=== PATIENT | female | born 1980 | race Caucasian/White ===

== ENCOUNTER 2018-08-07 09:17 | Inpatient (IN) | payer MEDICAID ==
[~2018-08-07] VITALS: Ht 152.4 cm; Wt 79.6 kg
[2018-08-07 09:29] VITALS: BP 109/65; PULSE 74; RESP 18; Ht 152.4 cm; Wt 79.6 kg
[2018-08-07] MEDS ORDERED: PREN-93 PO (09:29)
[2018-08-07] MEDS ORDERED: OXYTOCIN 30 UNITS/LR 500 ML IV SCH ×3 (13:00→19:00)
[2018-08-07] MEDS ORDERED: LIDOCAINE 1% (MPF) 30 ML INJ INJ PRN (13:00)
[2018-08-07] MEDS ORDERED: CARBOPROST 250 MCG INJ IM PRN ×2 (13:00→23:00)
[2018-08-07] MEDS ORDERED: METHYLERGONOVINE 0.2 MG INJ IM PRN ×2 (13:00→23:00)
[2018-08-07] MEDS ORDERED: BUTORPHANOL 2 MG INJ IV PRN ×2 (13:00)
[2018-08-07] MEDS ORDERED: OXYTOCIN 30 UNITS/LR 500 ML IV PRN ×2 (13:00→23:00)
[2018-08-07] MEDS ORDERED: MISOPROSTOL 200 MCG TAB PR PRN ×2 (13:00→23:00)
[2018-08-07] MEDS ORDERED: IBUPROFEN 600 MG TAB PO PRN (13:00)
[2018-08-07] MEDS: LACTATED RINGER'S 1,000 ML IV SCH ×3 (15:23→18:08)
--- NOTE | 2018-08-07 17:13 | HP ---
Date/Time of Note Date/Time of Note DATE: 08/07/18 TIME: 17:09 OB - History Hx of Present Free Text/Dictation 38-year-old female 4 para 3 at 38 weeks and 5 days gestation admitted complaining of onset of uterine contractions started few hours prior to admission Chief Complaint: Labor contractions and vaginal spotting Last Menstrual Period: Nov 09, 2017 Estimated Due Date: Aug 16, 2018 : 4 Para: 3 Ultrasounds: Normal mid trimester US Obstetrical Complications: Gestational Diabetes Medical Complications: None Past Family/Social History * Past Medical, Surgical, Family and Obstetric Histories reviewed from chart. Blood Type: O+ Rubella: not immune RPR/VDRL: Negative GBS Status: Unknown HBsAG: Negative OB Admission Exam Vital Signs Vital Signs Vital Signs Date Temp Pulse Resp B/P (MAP) Pulse Ox O2 O2 Flow FiO2 Time Delivery Rate 08/07/18 98.0 74 18 109/65 Room Air 09:29 (80) Physical Exam HEENT: WNL Heart: Rhythm Normal Lungs: Clear, Equal Abdomen: WNL Extremities: Normal Reflexes: Normal Cervical Dilatation: 4cm Effacement: 50% Station: -3 Membranes: Intact Heart Rate: 140's Accelerations: Accelerations Present Decelerations: No Decelerations Varibility: Marked Contractions on Admission: 6-10 Minutes Apart Date/Time Contractions Began: 08/07/2018 and 6 AM Frequency of Contractions: Every 6 to 10 minutes Duration: Over 45 seconds Intensity: Mild Last 72 hours Lab Results CBC & BMP 08/07/18 12:23 OB Assessment/Plan Other Assessment: Term gestation labor contractions the cause cervical change Other plan: We will continue to observe JULIA AVILEZ MD Aug 07, 2018 17:13
[2018-08-07] MEDS ORDERED: ACETAMINOPHEN 500 MG TAB PO STA (20:03)
[2018-08-07] MEDS ORDERED: KETOROLAC 30 MG INJ IV STA (20:03)
--- NOTE | 2018-08-07 20:03 | LDN ---
Date/Time of Note Date/Time of Note DATE: 08/07/18 TIME: 20:01 Delivery Summary Normal spontaneous vaginal delivery of a viable infant over intact perineum Weeks of Gestation 38+ weeks Placenta Delivered: Intact & Complete Meconium: none Episiotomy: No Perineal laceration: 0 Anesthesia type: None Estimated blood loss: 200 Sponge & Needle done & correct: Yes All needle counts correct: Yes Any foreign bodies felt in the: No Infant Delivery Information Sex Sex: female Apgars 1 Minute: 9 5 Minute: 9 Suctioning Nose & mouth suctioned at ege: Yes Delee suction performed: No Umbilical Cord Umbilical cord with: 3 Vessels Cord presentations: no nuchal cord Cord Blood was obtained: Yes Mother & Baby Disposition Disposition Mom & Baby to Maternity; Good: Yes (Mother and baby were recovered in good condition) Mom transferred to: Other (Maternity floor) Baby to NICU: No JULIA AVILEZ MD Aug 07, 2018 20:03
[2018-08-07 22:00] VITALS: BP 104/55; PULSE 57; RESP 20
[2018-08-07] MEDS ORDERED: WITCH HAZEL/GLYCERIN PAD PR PRN (23:00)
[2018-08-07] MEDS ORDERED: ZOLPIDEM 5 MG TAB PO PRN (23:00)
[2018-08-07] MEDS ORDERED: BENZOCAINE 20% 56 ML SPRAY TOP PRN (23:00)
[2018-08-07] MEDS ORDERED: HYDROCODONE/APAP (5/325) TAB PO PRN ×2 (23:00)
[2018-08-07] MEDS ORDERED: DIBUCAINE 1% 30 GM OINT TOP PRN (23:00)
[2018-08-07] MEDS ORDERED: LANOLIN HPA 1 PKT TOP PRN (23:00)
[2018-08-08] MEDS: LACTATED RINGER'S 1,000 ML IV* SCH ×2 (00:36→06:39)
[2018-08-08] MEDS: IBUPROFEN 600 MG TAB PO SCH ×4 (00:38→18:00)
[2018-08-08 04:00] VITALS: BP 90/55; PULSE 71; RESP 16
[2018-08-08] MEDS: ACCU-CHEK XX SCH (06:00)
[2018-08-08 08:00] VITALS: BP 100/57; PULSE 84; RESP 18
[2018-08-08] MEDS: MAGNESIUM HYDROXIDE 30ML CUP PO SCH ×2 (09:00→21:09)
[2018-08-08] MEDS: SENNA/DOCUSATE NA (8.6MG/50MG) TAB PO SCH ×2 (11:37→21:09)
--- NOTE | 2018-08-08 11:55 | DS ---
Date/Time of Note Date/Time of Note Home today or next day DATE: 08/08/18 TIME: 11:54 Obstetrical Discharge Record Final Diagnosis Final Diagnosis: Term delivered Other Final Diagnosis Status post vaginal delivery Vaginal Delivery Obstetrical Delivery: Spontaneous Complications Gestational Diabetes Condition on Discharge Physical Assessment Last Vitals: See nurse's notes Voiding: Yes Bowel Movement: Yes Breast: Soft, non-tender, Filling Fundus: Firm Abdomen and Incision: Abdomen is soft with firm fundus Episiotomy: Perineum is intact and appears clean Calf Tenderness: No Patient Condition: Good JULIA AVILEZ MD Aug 08, 2018 11:55
[2018-08-08] MEDS ORDERED: IBUP-1542 PO (11:58)
--- NOTE | 2018-08-08 11:58 | PD.PPDC ---
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 Provider Information Physician Information 38-year-old female had vaginal delivery Sugars remained stable on diet after delivery Diagnosis Ulvfv6Es Final Diagnosis: Wkjov6n Status post vaginal delivery Condition Kwrrw1Up Patient Condition: Ehdck0c Good Diet Qejyn8Ly Diet: Dptlm3z Special Diet Special Diet: 2000-calorie ADA Activity/Restrictions [id number] Activity: Ngasf6y Normal Activity May Shower Hefqf6Ns Restrictions: Wxwgp6f Nothing in the Vagina [id number] Return to Work or School: Jbnat6b Sep 25, 2018 Follow-up Follow-up with Physician: 2, 4, Week/Weeks (In clinic) Return to clinic for [id number] OB Instructions: Jzbxt5d Breast Tenderness Depression Comment: Pelvic rest for 6 weeks JULIA AVILEZ MD Aug 08, 2018 11:58
[2018-08-08 12:00] VITALS: BP 98/50; PULSE 61; RESP 18
[2018-08-08 17:17] VITALS: BP 105/51; PULSE 72; RESP 18
[2018-08-08 20:00] VITALS: BP 104/68; PULSE 62; RESP 19
[2018-08-09] MEDS: LACTATED RINGER'S 1,000 ML IV* SCH ×2 (01:17→06:44)
[2018-08-09] MEDS: ACCU-CHEK XX SCH ×4 (01:17→11:00)
[2018-08-09 03:30] VITALS: BP 105/59; PULSE 79; RESP 19
[2018-08-09] MEDS: IBUPROFEN 600 MG TAB PO SCH ×3 (05:55→12:00)
[2018-08-09 08:00] VITALS: BP_SYST 100; BP_SYST 111; BP_DIAS 56; BP_DIAS 65; PULSE 76; PULSE 81; RESP 18
[2018-08-09] MEDS ORDERED: DIPHTH/TET/ACEL PERTUSS (ADULT) 0.5 ML VIAL IM* ONE (09:00)
[2018-08-09] MEDS ORDERED: MEASLES,MUMPS,RUBELLA VACCINE INJ SC* ONE (09:00)
[2018-08-09] MEDS ORDERED: VARICELLA VACCINE LIVE/PF 1,350 UNIT/0.5 ML ML SC* ONE (09:00)
[2018-08-09] MEDS: MAGNESIUM HYDROXIDE 30ML CUP PO SCH (09:41)
[2018-08-09] MEDS: SENNA/DOCUSATE NA (8.6MG/50MG) TAB PO SCH (09:41)
--- NOTE | 2018-08-10 13:43 | DELSUM ---
Delivery Summary A-C Datetime Report Generated by CPN: 08/10/2018 13:42 DELIVERY PERSONNEL Sensitometrist: MikeBelle Mead MATERNAL INFORMATION Delivery Anesthesia: None Medications in Delivery: 30Upitocin WITH lr Delivery QBL (ml): 200 Placenta Cultured: No Maternal Complications: None RN Comments: GDM DIET CONTROLED, LAST BABY 12 YRS AGO LABOR SUMMARY EDC: 08/16/2018 00:00 No. Babies in Womb: 1 Attempted: No Labor Anesthesia: IV Sedation LABOR INFORMATION Reason for Induction: Not Applicable Onset of Labor: 08/07/2018 12:00 Complete Dilatation: 08/07/2018 09:41 Group B Beta Strep: Negative Antibiotics # of Doses: 0 Steroids Given: None Reason Steroids Not Administered: Not Applicable MEMBRANES Membranes Rupture Method: Artificial Rupture of Membranes: 08/07/2018 17:48 Length of Rupture (hr): 2.07 Amniotic Fluid Color: Clear Amniotic Fluid Amount: Moderate Amniotic Fluid Odor: Normal STAGES OF LABOR Stage 1 hr: -2 Stage 1 min: -19 Stage 2 hr: 10 Stage 2 min: 11 Stage 3 hr: 0 Stage 3 min: 2 Total Time in Labor hr: 7 Total Time in Labor min: 54 VAGINAL DELIVERY Episiotomy: None Laceration Extension: N/A Laceration Type: None Laceration Repair: Not Applicable Initial Vag Sponge Count: 10 Final Vag Sponge Count: 10 Initial Vag Sharps Count: 2 Final Vag Sharps Count: 2 Sponge Count Correct: Yes; Vaginal Sweep Performed Sharps Count Correct: Yes CSECTION DELIVERY Sterilization Procedure: Ring and Clip BABY A INFORMATION Infant Delivery Date/Time: 08/07/2018 19:52 Method of Delivery: Vaginal Born in Route : No : N/A Forceps: N/A Vacuum Extraction: N/A Shoulder Dystocia : No SHOULDER DYSTOCIA BABY A Infant Delivery Date/Time: 08/07/2018 19:52 PRESENTATION/POSITION BABY A Presentation: Cephalic Cephalic Presentation: Vertex Vertex Position: Left Occipital Anterior Breech Presentation: N/A PLACENTA INFORMATION BABY A Placenta Delivery Time : 08/07/2018 19:54 Placenta Method of Delivery: Spontaneous Placenta Status: Delivered SCORES BABY A Heart Rate 1 min: >100 bpm Resp Effort 1 min: Good Cry Reflex Irritability 1 min: Cough/Sneeze/Pulls Away Muscle Tone 1 min: Active Motion Color 1 min: Body [place], Extremit Blue Resuscitation Effort 1 min: Tactile Stimulation SCORE 1 MIN: 9 Heart Rate 5 min: >100 bpm Resp Effort 5 min: Good Cry Reflex Irritability 5 min: Cough/Sneeze/Pulls Away Muscle Tone 5 min: Active Motion Color 5 min: Body [place], Extremit Blue Resuscitation Effort 5 min: Tactile Stimulation SCORE 5 MIN: 9 INFANT INFORMATION BABY A Gestational Age at Delivery: 38.5 Gestational Status: Early Term- 37- 38.6 Weeks Outcome : Liveborn, with signs of life Condition : Stable Sex: Female IDENTIFICATION/MEDS BABY A ID Band Number: [id number] ID Band Location: Right Leg; Left Arm Sensor Applied: Yes Sensor Number: [id number] Sensor Location : Cord Clamp Vitamin K Given : Not Given Erythromycin Given: Not Given WEIGHT/LENGTH BABY A Birthweight (gm): 3415 Infant Weight (lb): 7 Infant Weight (oz): 8 Length (in): 19.00 Length (cm): 48.26 CORD INFORMATION BABY A No. Cord Vessels: 3 Nuchal Cord : N/A Cord Blood Taken: Yes Infant Suction: Mouth; Nose ASSESSMENT BABY A Infant Complications- Other: GDM
== END 2018-08-09 13:00 | disposition home or self-care (01) | DRG 807 ==
LOC: OBT 09:17 → L-D 09:19 → OBT 12:05 → L-D 12:06 → PP1 22:10
PROVIDERS: ADMIT Obstetrics & Gynecology; ATTEND Obstetrics & Gynecology
PROC: 10E0XZZ Delivery of Products of Conception, External Approach (ICD-10-PCS; principal; 2018-08-07)
DX: O24.419 Gestational diabetes mellitus in pregnancy, unspecified control (principal); Z37.0 Single live birth; Z3A.38 38 weeks gestation of pregnancy
CPT/HCPCS: 76815; 76818; 82947; 82962; 85025; 85610; 85730; 86592; 86850; 86900; 86901; 87340; 90716; G0463; J0595; J1885; J2590; J7120

== ENCOUNTER 2018-08-13 16:46 | Emergency (ER) | payer MEDICAID ==
[~2018-08-13] VITALS: Ht 154.9 cm; Wt 71.5 kg
[~2018-08-13 16:46] MED LIST: IBUP-1542 PO; PREN-93 PO
[2018-08-13 16:51] VITALS: BP 134/63; PULSE 55; RESP 20; Ht 154.9 cm; Wt 71.5 kg
[2018-08-13] MEDS ORDERED: PRED20TA PO (17:16)
--- NOTE | 2018-08-13 17:19 | ERD ---
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 The patient has right-sided facial paralysis that includes the forehead. She notes sensation deficit to the right anterior portion of the tongue. She denies any fevers or chills, no falls or injury, no other motor weakness. ROS All systems reviewed and are negative except as per history of present illness. Medications Home Meds Active Scripts Prednisone* (Prednisone*) 20 Mg Tab, 60 MG PO DAILY for 7 Days, TAB Prov:BRANDYN REMY MD 08/13/18 Ibuprofen* (Ibuprofen*) 600 Mg Tablet, 600 MG PO Q6, #60 TAB 0 Refills Prov:JULIA AVILEZ MD 08/08/18 Reported Medications Vit No.124/Iron/FA ( Vitamin Tablet) 1 Each Tablet, 1 EACH PO DAILY, TAB 08/07/18 Allergies Allergies: Coded Allergies: No Known Drug Allergy (Verified Allergy, Unknown, 04/20/06) PMhx/Soc Medical and Surgical Hx: pt denies Medical Hx, pt denies Surgical Hx Hx Alcohol Use: No Hx Substance Use: No Hx Tobacco Use: No Smoking Status: Never smoker FmHx Family History: No diabetes Physical Exam Vitals Vital Signs Date Temp Pulse Resp B/P (MAP) Pulse Ox O2 O2 Flow FiO2 Time Delivery Rate 08/13/18 98.0 55 20 134/63 100 16:51 (86) Physical Exam General: Well developed, well nourished, no acute distress Head: Normocephalic, atraumatic. Eyes: Pupils equally reactive, EOM intact ENT: Moist mucous membranes Neck: Supple, no lymphadenopathy Respiratory: Lungs clear bilaterally, no distress Cardiovascular: RRR, no murmurs, rubs, or gallops Abdominal: Soft, non-tender, non-distended, no peritoneal signs : Deferred MSK: No edema, no unilateral swelling, 5/5 strength Neurologic: Alert and oriented, moving all extremities, normal speech, no focal weakness, no cerebellar signs, right-sided facial paralysis that includes the forehead, able to close the eyes fully. House-Brackman grade II-III. Steady gait Skin: No rash Psych: Normal mood Procedures/MDM Patient presents with signs and symptoms very consistent with uncomplicated right-sided Kamara's palsy. She has no signs or symptoms concerning for central nervous system process. No signs or symptoms concerning for intracranial mass or hemorrhage. No indication for CT imaging of the brain. Patient has a classic presentation. She has mild to moderate dysfunction therefore prednisone alone would be reasonable treatment Return precautions were discussed and understood. The patient will be initiated on glucocorticoid therapy. Primary care follow-up in neurology follow-up will be reasonable. The patient does not have an identifiable emergent medical condition that warrants inpatient hospitalization at this time. The patient is deemed safe for discharge with outpatient follow-up. We discussed follow up with the patient's primary care doctor within 24 to 48 hours as needed. We also discussed return to the emergency room for worsening symptoms or worsening condition. Outpatient referral: None required Discharge Medications: Prednisone 60 mg for 7 days Departure Diagnosis: Primary Impression: Kamara's palsy Condition: Stable Patient Instructions: Kamara's Palsy Ref[facility]: [facility] Usted se ramirez hecho un examen mdico de control que le indica que no est en mary condicin que requiera tratamiento urgente en el Departamento de Emergencia. Un estudio ms profundo y el tratamiento de granger condicin pueden esperar sin ningn riesgo hasta que usted sea atendida/o en el consultorio de granger mdico o mary clnica. Es responsabilidad suya arreglar mary stacie para el seguimiento del brenda. MANEJO DE CONDICIONES NO URGENTES EN EL FUTURO 1) Si usted tiene un mdico de atencin primaria: Usted debera llamar a granger mdico de atencin primaria antes de venir al departamento de emergencia. Despus de las horas de consultorio, granger doctor o granger asociado/a est disponible por telfono. El mdico o enfermero de izzy en el servicio telefnico puede asesorarle por lizeth medio para atender el problema, o brenda contrario se puede programar mary stacie. 2) Si usted no tiene un mdico de atencin primaria: Llame al mdico o clnica de referencia que aparece abajo kwasi las horas de consultorio para hacer mary stacie para que le vean. CLINICAS: [facility] [phone] [facility] [phone] [facility] [phone] [place] [id number] [phone] [place] [address] [phone] [facility] [phone] [address] [facility]. [facility] () Usted se ramirez hecho un examen mdico de control que le indica que no est en mary condicin que requiera tratamiento urgente en el Departamento de Emergencia. Un estudio ms profundo y el tratamiento de granger condicin pueden esperar sin ningn riesgo hasta que usted sea atendida/o en el consultorio de granger mdico o mary clnica. Es responsabilidad suya arreglar mary stacie para el seguimiento del brenda. MANEJO DE CONDICIONES NO URGENTES EN EL FUTURO 1) Si usted tiene un mdico de atencin primaria: Usted debera llamar a granger mdico de atencin primaria antes de venir al departamento de emergencia. Despus de las horas de consultorio, granger doctor o granger asociado/a est disponible por telfono. El mdico o enfermero de izzy en el servicio telefnico puede asesorarle por lizeth medio para atender el problema, o brenda contrario se puede programar mary stacie. 2) Si usted no tiene un mdico de atencin primaria: Llame al mdico o condado institucions de referencia que aparece abajo kwasi las horas de consultorio para hacer mary stacie para que le vean. SI USTED NO PUEDE PAGAR PARA RICARDO UN MEDICO puede ir a: [facility] [id number] [employer] [place] [address] [facility] [address] [place] [address] [facility] [address] [place] [address] [address] [facility] [address] [place], [place] [id number] Additional Instructions: Llame al doctor nombrado abajo (Referral Sources) MAANA y maya mary STACIE PARA DENTRO DE MARY SEMANA. Dgale a la secretaria que nosotros le instruimos hacer esta stacie.Avise o llame si granger condicin se empeora antes de la stacie. BRANDYN REMY MD Aug 13, 2018 17:19
== END 2018-08-13 17:26 | disposition home or self-care (01) ==
LOC: E/R 16:46
DX: G51.0 Bell's palsy (principal)
CPT/HCPCS: 99283